=== PATIENT | female | born 1990 | race Two or more races ===

== ENCOUNTER 2024-06-09 11:15 | Inpatient (IN) | payer OTHER ==
[~2024-06-09] VITALS: Ht 162.6 cm; Wt 76.2 kg
[2024-06-10 13:24] VITALS: BP 155/95
[2024-06-19] MEDS ORDERED: POVIDONE-IODINE 118 ML BOTT TOP ONE ×2 (08:35→09:10)
[2024-06-19] MEDS ORDERED: CEFAZOLIN SODIUM 1,000 MG VIAL IV ONE (09:45)
[2024-06-19] MEDS ORDERED: HEMOSTATIC MATRIX 1 KIT KIT TOP ONE (10:28)
[2024-06-19] MEDS ORDERED: MORPHINE SULFATE 4 MG/ML VIAL IV ONE ×3 (11:45→16:10)
[2024-06-19] MEDS ORDERED: MORPHINE SULFATE 4 MG/ML CARTRIDGE IV PRN (12:15)
[2024-06-19] MEDS ORDERED: SODIUM CHLORIDE 0.45 % 1,000 ML IV SCH (12:15)
[2024-06-19] MEDS ORDERED: ONDANSETRON HCL 2 MG/ML VIAL IV PRN (12:15)
[2024-06-19] MEDS ORDERED: ACETAMINOPHEN WITH CODEINE 1 UDTAB TABLET PO PRN (12:45)
[2024-06-19] MEDS ORDERED: ENOXAPARIN SODIUM 40 MG/0.4 ML SYRINGE SUBCUTANEO ONE (15:19)
[2024-06-19 15:34] LABS: HEMATOCRIT 39.4 % (36.0-45.00); HEMOGLOBIN 13.1 g/dL (12.0-15.00); MEAN CELL VOLUME 94.9 fL (80.00-100.00); MEAN CORPUSCULAR HEMOGLOBIN 31.5 pg (27.00-32.0); MEAN CORPUSCULAR HGB CONC 33.2 g/dl (32.0-36.0); PLATELET COUNT 285 K/uL (150-450); RED BLOOD COUNT 4.15 M/uL (4.00-6.00)
[2024-06-19] MEDS ORDERED: CEFOXITIN SODIUM 2,000 MG VIAL IV ONE (16:10)
[2024-06-19] MEDS ORDERED: CEFOXITIN SODIUM 2,000 MG VIAL IV SCH (17:00)
[2024-06-19] MEDS ORDERED: ENOXAPARIN SODIUM 40 MG/0.4 ML SYRINGE SUBCUTANEO SCH (17:00)
[2024-06-19 17:26] VITALS: BP 140/77
[2024-06-20 00:53] VITALS: BP 139/84
[2024-06-20 08:48] VITALS: BP 128/78
[2024-06-20] MEDS ORDERED: FAMOTIDINE/PF 20 MG/2 ML VIAL IV NR (09:15)
[2024-06-20] MEDS ORDERED: KETOROLAC TROMETHAMINE 30 MG VIAL IV NR (09:15)
[2024-06-20] MEDS ORDERED: DIPHENHYDRAMINE HCL 50 MG/ML VIAL 1ML IV NR (09:15)
[2024-06-20] MEDS ORDERED: DOCUSATE SODIUM 100MG CAP PO SCH (09:15)
[2024-06-20] MEDS ORDERED: KETOROLAC TROMETHAMINE 15 MG VIAL IM STA (11:10)
[2024-06-20 15:03] LABS: HEMATOCRIT 37.5 % (36.0-45.00); HEMOGLOBIN 12.8 g/dL (12.0-15.00); MEAN CELL VOLUME 93.3 fL (80.00-100.00); MEAN CORPUSCULAR HEMOGLOBIN 31.9 pg (27.00-32.0); MEAN CORPUSCULAR HGB CONC 34.1 g/dl (32.0-36.0); PLATELET COUNT 292 K/uL (150-450); RED BLOOD COUNT 4.02 M/uL (4.00-6.00); RED CELL DISTRIBUTION WIDTH 13.5 % (11.5-14.5)
[2024-06-20 16:21] VITALS: BP 135/72
[2024-06-20] MEDS ORDERED: DIPHENHYDRAMINE HCL 50 MG/ML VIAL 1ML IV SCH ×2 (20:24→22:00)
[2024-06-20 20:41] VITALS: BP 145/83
[2024-06-20] MEDS ORDERED: KETOROLAC TROMETHAMINE 15 MG VIAL IM SCH (21:00)
[2024-06-20] MEDS ORDERED: FAMOTIDINE/PF 20 MG/2 ML VIAL IV PUSH SCH (21:00)
[2024-06-20] MEDS ORDERED: KETOROLAC TROMETHAMINE 30 MG VIAL IM NR (22:00)
[2024-06-21 01:10] VITALS: BP 121/77
[2024-06-21 05:58] VITALS: BP 133/79
[2024-06-21 08:31] VITALS: BP 99/63
[2024-06-21] MEDS ORDERED: KETOROLAC TROMETHAMINE 30 MG VIAL IM SCH (09:00)
[2024-06-21] MEDS ORDERED: DIPHENHYDRAMINE HCL 50 MG/ML VIAL 1ML IV PRN (13:22)
[2024-06-21] MEDS ORDERED: KETOROLAC TROMETHAMINE 30 MG VIAL IM PRN (13:22)
[2024-06-21] MEDS ORDERED: ACETAMINOPHEN 325 MG TABLET PO PRN (13:30)
[2024-06-21] MEDS ORDERED: TRAMADOL HCL 50 MG TABLET PO PRN (13:30)
[2024-06-21 16:39] VITALS: BP 113/70
[2024-06-22 00:02] VITALS: BP 134/69
[2024-06-22 04:56] VITALS: BP 111/67
[2024-06-22 08:30] VITALS: BP 117/66
[2024-06-22] MEDS ORDERED: TRAM1TAB98 PO (12:17)
== END 2024-06-22 12:58 | disposition home or self-care (01) | DRG 743 ==
LOC: O/R 06-19 05:36 → SURG 06-19 09:45 → OB/GYN 06-19 14:49
PROVIDERS: ADMIT Obstetrics & Gynecology; ATTEND Obstetrics & Gynecology
PROC: 0UT70ZZ Resection of Bilateral Fallopian Tubes, Open Approach (ICD-10-PCS; 2024-06-19)
PROC: 0USG0ZZ Reposition Vagina, Open Approach (ICD-10-PCS; 2024-06-19)
PROC: 0UT90ZZ Resection of Uterus, Open Approach (ICD-10-PCS; principal; 2024-06-19 09:45)
DX: D25.1 Intramural leiomyoma of uterus (principal); D25.0 Submucous leiomyoma of uterus; Z20.822 Contact with and (suspected) exposure to COVID-19; N92.0 Excessive and frequent menstruation with regular cycle